=== PATIENT | female | born 1980 | race Caucasian/White ===

== ENCOUNTER 2019-09-27 17:41 | Emergency (ER) | payer OTHER ==
[2019-09-27] MEDS ORDERED: CEFAZOLIN 1 GM VIAL ONE ×2 (17:45→17:56)
[2019-09-27] MEDS ORDERED: Sodium Chloride 0.9% 100 ML ONE ×2 (17:46→17:56)
[2019-09-27] MEDS ORDERED: Midazolam HCl 2 mg/2 ml Vial ONE (17:54)
[2019-09-27] MEDS ORDERED: Sodium Chloride 0.9% 1,000 ML ONE (17:56)
[2019-09-27] MEDS ORDERED: Adacel (T-DAP) 0.5 ML SYRINGE ONE (18:02)
[2019-09-27 18:03] LABS: BHCG - Serum Negative (NEGATIVE); Pregs Control Background? CLEAR/WHITE (CLR/WHITE); Pregs Control Bar Appear? YES (CONTROL BAR)
[2019-09-27] MEDS ORDERED: Morphine 10 MG/ML VIAL ONE (18:05)
[2019-09-27 18:06] LABS: #Basophils 0.2 thou/uL (0.0-0.2); #Eosinphils 0.4 thou/uL (0.0-0.7); #Lymphocytes 5.7 thou/uL (1.20-3.40); #Neutrophils 6.1 thou/uL (1.40-6.50); %Basophils 1.4 % (0.0-1.0); %Eosinophils 2.9 % (0.0-10.0); %Lymphocytes 42.4 % (21.0-51.0); %Monocytes 7.6 % (0.0-10.0); %Neutrophils 45.7 % (42.0-75.0); Hemoglobin 12.5 g/dL (12.0-16.0); Mean Corpuscular HGB CONC 31.1 g/dL (32.0-36.0); Mean Corpuscular Hemoglobin 28.7 pg (27.0-31.0); Mean Corpuscular Volume 92.1 fL (78.0-98.0); Platelet Count 373 thou/uL (130-400); RBC Distribution Width 13.3 % (11.5-14.5); Red Blood Cell (RBC) Count 4.35 mill/uL (4.20-5.40); White Blood Cell (WBC) Count 13.4 thou/uL (4.8-10.8)
[2019-09-27] MEDS ORDERED: Ketamine 50 MG/ML (10ML VIAL) ONE (18:10)
--- NOTE | 2019-09-27 18:18 | RAD ---
LEFT ANKLE THREE VIEWS: History: Injury, left ankle pain. FINDINGS/IMPRESSION: A cast is present. There are displaced fractures involving the distal tibia and fibula with extension into the tibial plafond. POS: OFF
[2019-09-27] MEDS ORDERED: Morphine 4 MG/ML VIAL ONE (18:19)
[2019-09-27] MEDS ORDERED: Morphine 2 MG/ML SYRINGE ONE (18:19)
[2019-09-27 18:21] LABS: ALT (SGPT) 21 U/L (8-55); AST (SGOT) 18 U/L (5-34); Albumin 4.5 g/dL (3.5-5.0); Alkaline Phosphatase 65 U/L (40-110); Anion Gap 21 mmol/L (10-20); BUN (Urea Nitrogen) 9 mg/dL (7.0-18.7); Bilirubin, Total 0.3 mg/dL (0.2-1.2); Calc. Creatinine Clearance 0 mL/min (70-130); Calcium 9.3 mg/dL (7.8-10.44); Carbon Dioxide 16 mmol/L (22-29); Chloride 106 mmol/L (98-107); Estimated GFR-MDRD 75; Globulin 3.2 g/dL (2.4-3.5); Glucose 117 mg/dL (70-105); Potassium 3.7 mmol/L (3.5-5.1); Protein, Total 7.7 g/dL (6.0-8.3); Sodium 139 mmol/L (136-145)
--- NOTE | 2019-09-27 18:41 | RAD ---
LEFT KNEE TWO VIEWS LEFT LEG TWO VIEWS: History: Injury, left leg pain. FINDINGS/IMPRESSION: A cast is present. Displaced fracture of the distal shafts of the left tibia( with extension to artic ular surface)and fibula. There is also a avulsion fracture involving the superior aspect of the left fibula. POS: OFF
== END 2019-09-27 18:22 | disposition short-term general hospital (02) ==
LOC: MADERS 17:41
DX: S82.302B Unspecified fracture of lower end of left tibia, initial encounter for open fracture type I or II (principal); S82.452A Displaced comminuted fracture of shaft of left fibula, initial encounter for closed fracture; J45.909 Unspecified asthma, uncomplicated; W17.89XA Other fall from one level to another, initial encounter
CPT/HCPCS: 27825; 80053; 84703; 85025; 85730; 86850; 86900; 86901; 90471; 90715; 96365; 96375; 96376; J0690; J2250; J2270; J3490; J7050